=== PATIENT | male | born 2005 | race Two or more races ===

== ENCOUNTER 2025-02-12 14:10 | Emergency (ER) | payer OTHER ==
[~2025-02-12] VITALS: Ht 170.2 cm; Wt 56.7 kg
[2025-02-12] MEDS ORDERED: 0.9 % SODIUM CHLORIDE 1,000 ML IV SCH (15:00)
[2025-02-12] MEDS ORDERED: ONDANSETRON HCL 2 MG/ML VIAL IV SCH (15:00)
[2025-02-12] MEDS ORDERED: FAMOTIDINE/PF 20 MG/2 ML VIAL IV SCH (15:00)
[2025-02-12] MEDS ORDERED: DEXTROSE 5 % AND 0.9 % NACL 1,000 ML IV SCH (15:00)
[2025-02-12] MEDS ORDERED: FAMOTIDINE/PF 20 MG/2 ML VIAL ONE (15:01)
[2025-02-12] MEDS ORDERED: ONDANSETRON HCL 2 MG/ML VIAL ONE (15:01)
[2025-02-12 15:27] LABS: BASO % 0.3 % (0.1-1.2); EOS # 0.01 (0.04-0.54); EOS % 0.1 % (0.7-7.0); HEMOGLOBIN 14.9 g/dL (13.7-17.5); LYMPH # 1.29 (1.18-3.74); LYMPH % 7.9 % (19.3-53.1); MONO # 0.69 (0.24-0.82); MONO % 4.2 % (4.7-12.5); NEUT # 14.15 (1.56-6.13); NEUT % 87.1 % (34.0-71.1); PLATELET COUNT 187 K/uL (163-369); RED BLOOD COUNT 4.66 M/uL (4.63-6.08); RED CELL DISTRIBUTION WIDTH 11.9 % (11.6-14.4)
[2025-02-12 15:58] LABS: ALBUMIN 4.6 gm/dL (3.4-5.0); BILIRUBIN TOTAL 0.82 mg/dL (0.3-1.2); CALCIUM 9.5 mg/dL (8.5-10.1); CREATININE SERUM 0.89 mg/dL (0.70-1.30); GFR 108.98; GLOBULINA 3.7 G/DL (2.4-3.5); POTASSIUM 3.86 mEq/L (3.5-5.1); TOTAL PROTEIN 8.3 gm/dL (6.4-8.2)
[2025-02-12 18:05] LABS: COCAINE NEGATIVE (NEGATIVE); METHADONE NEGATIVE (NEGATIVE); OPIATES NEGATIVE (NEGATIVE); THC ( Cannabinoids) POSITIVE (NEGATIVE)
== END 2025-02-12 19:51 | disposition home or self-care (01) ==
LOC: ER 14:10 → EMR PED 14:13
PROVIDERS: Emergency Medicine Pediatric Emergency Medicine
DX: R10.84 Generalized abdominal pain (principal); E86.0 Dehydration; F10.10 Alcohol abuse, uncomplicated

== ENCOUNTER 2025-09-17 11:16 | Emergency (ER) | payer OTHER ==
[~2025-09-17] VITALS: Ht 170.2 cm; Wt 54.4 kg
[2025-09-17] MEDS ORDERED: FAMOTIDINE/PF 20 MG/2 ML VIAL IV PUSH STA (14:24)
[2025-09-17] MEDS ORDERED: ONDANSETRON HCL 2 MG/ML VIAL IV STA (14:24)
[2025-09-17] MEDS ORDERED: 0.9 % SODIUM CHLORIDE 1,000 ML IV STA (14:25)
[2025-09-17 15:46] LABS: BASO % 0.1 % (0.1-1.2); EOS # 0.00 (0.04-0.54); EOS % 0.0 % (0.7-7.0); LYMPH # 0.80 (1.18-3.74); LYMPH % 4.9 % (19.3-53.1); MEAN PLATELET VOLUME 13.40 fl (9.4-12.4); MONO # 0.97 (0.24-0.82); MONO % 5.9 % (4.7-12.5); NEUT # 14.54 (1.56-6.13); NEUT % 88.7 % (34.0-71.1); RED CELL DISTRIBUTION WIDTH 12.0 % (11.6-14.4)
[2025-09-17 16:12] LABS: ALT/SGPT 20.0 U/L (12-78); AST/SGOT 17.0 U/L (15-37); BILIRUBIN TOTAL 0.64 mg/dL (0.3-1.2); BUN CREA RATIO 19.0 (7.0-25.0); CREATININE SERUM 0.85 mg/dL (0.70-1.30); GFR 113.78; GLOBULINA 3.5 G/DL (2.4-3.5); GLUCOSE FASTING 98.0 mg/dL (65-100); OSMOLALITY SERUM 286.0 MOSM/KG (275-295)
[2025-09-17 16:30] LABS: URINE APPEARANCE Cloudy; URINE BILIRRUBIN Negative (NEGATIVE); URINE BLOOD Negative; URINE COLOR Dark Yellow; URINE GLUCOSE Negative (NEGATIVE); URINE LEUKOCYTE Trace; URINE NITRATE Negative; URINE UROBILINOGEN 1.0 E.U./dl
[2025-09-17 16:34] LABS: URINE BACTERIA 140.7 uL (0.0-1933); URINE CAST 6.09 uL (0.0-1.40); URINE EPITHELIAL CELLS 32.5 uL (0.0-38.8); URINE RBC 13.3 uL (0.0-20.8); URINE WBC 55.8 uL (0.0-23.2)
[2025-09-17 16:45] LABS: URINE KETONE 40 (NEGATIVE); URINE MUCUS HEAVY; URINE PROTEIN 100 (NEGATIVE)
[2025-09-17] MEDS ORDERED: PEPCID AC20 MG PO (17:51)
== END 2025-09-17 18:41 | disposition home or self-care (01) ==
LOC: ER 11:16
PROVIDERS: General Practice
DX: R11.10 Vomiting, unspecified (principal); E86.0 Dehydration; R10.9 Unspecified abdominal pain; K29.70 Gastritis, unspecified, without bleeding; F12.90 Cannabis use, unspecified, uncomplicated; F10.90 Alcohol use, unspecified, uncomplicated; D72.829 Elevated white blood cell count, unspecified